=== PATIENT | male | born 1975 | race Caucasian/White ===

== ENCOUNTER 2017-08-29 19:20 | Emergency (ER) | payer BC ==
[2017-08-29] MEDS ORDERED: cefTRIAXone 1,000 MG, Lidocaine 1% 2.1 ML IM ONE ×2 (19:43)
[2017-08-29] MEDS ORDERED: Diphtheria,Pertussis(Acell),Tetanus Vaccine 0.5 ML Syringe IM ONE (19:44)
[2017-08-29] MEDS ORDERED: cefTRIAXone 1 GM in Premix Bag 1 BAG IV ONE (20:17)
[2017-08-29] MEDS ORDERED: Sodium Chloride 0.9% 1,000 ML IV ONE (20:17)
[2017-08-29] MEDS ORDERED: Ketorolac 30 MG/ML SDV IVPUSH ONE (20:18)
--- NOTE | 2017-08-29 20:22 | EDM.PDOC ---
ED HPI GENERAL MEDICAL PROBLEM - General Chief Complaint: Upper Extremity Injury/Pain Stated Complaint: LACERATION Time Seen by Provider: 08/29/17 19:40 Source of Information: Reports: Patient History Limitations: Reports: No Limitations - History of Present Illness INITIAL COMMENTS - FREE TEXT/NARRATIVE: History of present illness: [42-year-old male presenting with laceration to right thumb, complaints of traumatic injury at work which included a blow to the head. Patient describes wrapping and chain around& in the oil dukes and having it jerked away from him taking his glove and jerking his hand causing him to subsequently fall forward slamming his head into another object. Patient denies loss of consciousness nausea or vomiting. Patient is unable to fully describe the incident (vague terms that he doesn't know his try to go home and drink some whiskey and duct tape the thumb so it's unclear whether he truly lost consciousness and/or he's too intoxicated to describe the event well.] Review of systems: As per history of present illness and below otherwise all systems reviewed and negative. Past medical history: As per history of present illness and as reviewed below otherwise noncontributory. Surgical history: As per history of present illness and as reviewed below otherwise noncontributory. Social history: No reported history of drug or alcohol abuse. Family history: As per history of present illness and as reviewed below otherwise noncontributory. Physical exam: HEENT: Atraumatic, normocephalic, pupils reactive, negative for conjunctival pallor or scleral icterus, mucous membranes moist, throat clear, neck supple, nontender, trachea midline. Lungs: Clear to auscultation, breath sounds equal bilaterally, chest nontender. Heart: S1S2, regular, negative for clicks, rubs, or JVD. Abdomen: Soft, nondistended, nontender. Negative for masses or hepatosplenomegaly. Negative for costovertebral tenderness. Pelvis: Stable nontender. Genitourinary: Deferred. Rectal: Deferred. Extremities: Deep laceration to right thumb on the palmar aspect spiraling around to the top, full range of motion and sensation is intact reflecting no neurovascular compromise. Neuro: Awake, alert, oriented. Cranial nerves II through XII unremarkable. Cerebellum unremarkable. Motor and sensory unremarkable throughout. Exam nonfocal. Procedure note: Hand cleaned with thumb prepped in the usual fashion 1% lidocaine injected a proximally 3 mls until anesthesia was appreciated. Wound edges well approximated with 4. 0 Prolene, with 7 interrupted sutures placed. Bacitracin applied and tube gauze dressing Diagnostics: [Hand x-ray, chest x-ray, head CT] Therapeutics: [Dilaudid IV, normal saline, Zofran] Impression: [#1 Laceration to right thumb(approx 5.5 cm) #2 multiple contusions of head, chest and forearms without evidence of fracture] Plan: [All up with Dr. Dickens next week for further evaluation of hand] Definitive disposition and diagnosis as appropriate pending reevaluation and review of above. head/rib/hand Pain Score (Numeric/FACES): 8 - Related Data Allergies Allergy/AdvReac Type Severity Reaction Status Date / Time amitriptyline Allergy Rash Verified 08/29/17 19:22 carbamazepine [From Tegretol] Allergy Rash Verified 08/29/17 19:22 divalproex sodium Allergy Rash Verified 08/29/17 19:22 [From Depakote] Penicillins Allergy Rash Verified 08/29/17 19:22 Home Meds: Home Meds Albuterol [Ventolin HFA] 1 puff INH Q4HR PRN 06/22/17 [History] DULoxetine [Cymbalta] 60 mg PO DAILY 06/22/17 [History] Gabapentin [Neurontin] 400 mg PO TID 06/22/17 [History] LORazepam [Ativan] 0.5 mg PO Q6HR PRN 06/22/17 [History] Omeprazole 20 mg PO DAILY #14 cap.cr 06/22/17 [Rx] Acetaminophen/HYDROcodone [[place] 325-5 MG] 1 tab PO Q6H #20 tablet 07/31/17 [Rx] DULoxetine [Cymbalta] 30 mg PO DAILY 07/31/17 [History] Doxycycline Monohydrate 100 mg PO Q12H 07/31/17 [History] Meperidine HCl [Meperidine] 50 mg PO Q6H PRN 07/31/17 [History] cloNIDine [Catapres] 0.1 mg PO DAILY 07/31/17 [History] hydrOXYzine Pamoate [Hydroxyzine Pamoate] 150 mg PO BEDTIME 07/31/17 [History] lamoTRIgine [Lamotrigine] 75 mg PO BID 07/31/17 [History] Past Medical History HEENT History: Reports: None Cardiovascular History: Reports: Other (See Below) Other Cardiovascular History: "bruised heart" Respiratory History: Reports: Asthma, Other (See Below) Other Respiratory History: multiple rib fractures Musculoskeletal History: Reports: Other (See Below) Other Musculoskeletal History: rib fractures Psychiatric History: Reports: ADHD, Anxiety, Depression, PTSD - Infectious Disease History Infectious Disease History: Reports: Chicken Pox, Measles - Past Surgical History GI Surgical History: Reports: Appendectomy Other Musculoskeletal Surgeries/Procedures:: patient states he has broken every bone in his body at one time Social & Family History - Family History Family Medical History: Noncontributory - Tobacco Use Smoking Status *Q: Current Every Day Smoker Years of Tobacco use: 30 Packs/Tins Daily: 1 Second Hand Smoke Exposure: No - Caffeine Use Caffeine Use: Reports: Coffee - Recreational Drug Use Recreational Drug Use: No Review of Systems - Review of Systems Review Of Systems: See Below (See history of present illness) ED EXAM, GENERAL - Physical Exam Exam: See Below (History of present illness) Course - Vital Signs Last Recorded V/S: Last Vital Signs Temp 35.8 C 08/29/17 19:44 Pulse 82 08/29/17 22:51 Resp 18 08/29/17 22:51 BP 136/80 08/29/17 22:51 Pulse Ox 95 08/29/17 22:51 - Orders/Labs/Meds Orders: Active Orders 24 hr Category Date Time Status Vaccines to be Administered [RC] PER UNIT ROUTINE Care 08/29/17 19:44 Active Chest 2V [CR] Stat Exams 08/29/17 20:35 Taken Hand Comp Min 3V Rt [CR] Stat Exams 08/29/17 19:42 Taken Head wo Cont [CT] Stat Exams 08/29/17 19:43 Taken Labs: Laboratory Tests 08/29/17 08/29/17 Range/Units 20:26 20:26 WBC 15.45 H (4.0-11.0) K/uL RBC 4.81 (4.50-5.90) M/uL Hgb 14.3 (13.0-17.0) g/dL Hct 41.7 (38.0-50.0) % MCV 86.7 (80.0-98.0) fL MCH 29.7 (27.0-32.0) pg MCHC 34.3 (31.0-37.0) g/dL RDW Std Deviation 43.8 (28.0-62.0) fl RDW Coeff of Amarjit 14 (11.0-15.0) % Plt Count 427 H (150-400) K/uL MPV 8.80 (7.40-12.00) fL Neut % (Auto) 83.1 H (48.0-80.0) % Lymph % (Auto) 7.5 L (16.0-40.0) % Atlantic % (Auto) 8.1 (0.0-15.0) % Eos % (Auto) 1.1 (0.0-7.0) % Baso % (Auto) 0.2 (0.0-1.5) % Neut # (Auto) 12.8 H (1.4-5.7) K/uL Lymph # (Auto) 1.2 (0.6-2.4) K/uL Atlantic # (Auto) 1.3 H (0.0-0.8) K/uL Eos # (Auto) 0.2 (0.0-0.7) K/uL Baso # (Auto) 0.0 (0.0-0.1) K/uL Nucleated RBC % 0.0 /100WBC Nucleated RBCs # 0 K/uL Sodium 138 (136-146) mmol/L Potassium 3.5 (3.5-5.1) mmol/L Chloride 99 (98-110) mmol/L Carbon Dioxide 19 L (21-31) mmol/L BUN 23 (6.0-23.0) mg/dL Creatinine 1.5 (0.6-1.5) mg/dL Est Cr Clr Drug Dosing 55.81 mL/min Estimated GFR (MDRD) 51.3 ml/min Glucose 99 (60-110) mg/dL Calcium 9.7 (8.8-10.8) mg/dL Total Bilirubin 0.6 (0.1-1.5) mg/dL AST 39 (5-40) IU/L ALT 32 (8-54) IU/L Alkaline Phosphatase 85 (40-150) Total Protein 8.0 (6.0-8.0) g/dL Albumin 4.4 (3.5-5.0) g/dL Globulin 3.6 H (2.0-3.5) g/dL Albumin/Globulin Ratio 1.2 L (1.3-2.8) Ethyl Alcohol < 10.0 mg/dL Meds: Medications Discontinued Medications Generic Name Dose Route Start Last Admin Trade Name Cindy PRN Reason Stop Dose Admin Bacitracin 1 dose 08/29/17 23:07 Bacitracin Oint 1 Gm TOP 08/29/17 23:08 ONETIME ONE Ceftriaxone Sodium 1,000 mg/ 0 mg 08/29/17 19:43 Lidocaine HCl 2.1 ml IM 08/29/17 19:44 ONETIME ONE Diphtheria/Tetanus/Acell Pertussis 0.5 ml 08/29/17 19:44 08/29/17 20:43 Adacel IM 08/29/17 19:45 Not Given .ONCE ONE Hydromorphone HCl 2 mg 08/29/17 21:09 08/29/17 21:30 Dilaudid IVPUSH 08/29/17 21:10 2 mg ONETIME ONE Administration Ceftriaxone Sodium/Dextrose 1 50 mls @ 100 mls/hr 08/29/17 20:17 08/29/17 20: 38 gm/ Premix IV 08/29/17 20:46 100 mls/hr ONETIME ONE Administration Sodium Chloride 1,000 mls @ 999 mls/hr 08/29/17 20:17 08/29/17 20:38 Normal Saline IV 08/29/17 21:17 999 mls/hr STAT ONE Administration Ketorolac Tromethamine 30 mg 08/29/17 20:18 08/29/17 20:37 Toradol IVPUSH 08/29/17 20:19 30 mg ONETIME ONE Administration Lidocaine HCl 15 ml 08/29/17 22:42 Xylocaine 2% Viscous .ROUTE 08/29/17 22:43 .STK-MED ONE Lidocaine HCl Confirm 08/29/17 22:47 Xylocaine-Mpf 1% Administered 08/29/17 22:48 Dose 5 ml .ROUTE .STK-MED ONE Ondansetron HCl 4 mg 08/29/17 21:09 08/29/17 21:30 Zofran IVPUSH 08/29/17 21:10 4 mg ONETIME ONE Administration Departure - Departure Time of Disposition: 23:15 Disposition: Home, Self-Care 01 Condition: Good Clinical Impression: Laceration of right thumb - Discharge Information Forms: ED Department Discharge Additional Instructions: The following information is given to patients seen in the emergency department who are being discharged to home. This information is to outline your options for follow-up care. We provide all patients seen in our emergency department with a follow-up referral. The need for follow-up, as well as the timing and circumstances, are variable depending upon the specifics of your emergency department visit. If you don't have a primary care physician on staff, we will provide you with a referral. We always advise you to contact your personal physician following an emergency department visit to inform them of the circumstance of the visit and for follow-up with them and/or the need for any referrals to a consulting specialist. The emergency department will also refer you to a specialist when appropriate. This referral assures that you have the opportunity for follow-up care with a specialist. All of these measure are taken in an effort to provide you with optimal care, which includes your follow-up. Under all circumstances we always encourage you to contact your private physician who remains a resource for coordinating your care. When calling for follow-up care, please make the office aware that this follow-up is from your recent emergency room visit. If for any reason you are refused follow-up, please contact the [facility] Emergency Department at and asked to speak to the emergency department charge nurse. Take medication as directed Take [id number] pain medicine such as ibuprofen 800 mg 3 times a day Follow-up with the plastic and hand surgeon who is local who can facilitate further care of your hand Follow-up your primary care in 3-5 days Return to ED as needed as discussed [facility] - Pl[facility] Surgery Professional Building [address] [place] [address], [address] [place] [address] - My Orders Last 24 Hours: My Active Orders 08/29/17 19:42 Hand Comp Min 3V Rt [CR] Stat 08/29/17 19:43 Head wo Cont [CT] Stat 08/29/17 19:44 Vaccines to be Administered [RC] PER UNIT ROUTINE 08/29/17 20:35 Chest 2V [CR] Stat - Assessment/Plan Last 24 Hours: My Active Orders 08/29/17 19:42 Hand Comp Min 3V Rt [CR] Stat 08/29/17 19:43 Head wo Cont [CT] Stat 08/29/17 19:44 Vaccines to be Administered [RC] PER UNIT ROUTINE 08/29/17 20:35 Chest 2V [CR] Stat
[2017-08-29 20:51] LABS: CHLORIDE,CL 99 mmol/L (98-110); SODIUM,NA 138 mmol/L (136-146)
[2017-08-29] MEDS ORDERED: Ondansetron 4 MG/2 ML SDV IVPUSH ONE (21:09)
[2017-08-29] MEDS ORDERED: HYDROmorphone 2 MG/ML Syringe IVPUSH ONE (21:09)
[2017-08-29] MEDS ORDERED: Lidocaine 2% Viscous Solution 15 ML Cup ONE (22:42)
[2017-08-29] MEDS ORDERED: Bacitracin Oint 1 GM U/D Packet TOP ONE (23:07)
--- NOTE | 2017-09-01 18:43 | CT ---
EXAM DATE: 08/29/17 PATIENT'S AGE: 42 Patient: SHELLEY VARGAS Facility: [place], [place] Site . Site : 1975 Study: CT Head [id number] 8:21:26 PM Ordering Physician: Doctor Tena Final Report: INDICATION: Injury. Question loss of consciousness. Technique: CT head without IV contrast. Findings: Small amount of fluid, mucous and mucosal thickening right maxillary sinus. No intracranial hemorrhage, edema, or mass effect. Minimal cerebral atrophy. Remainder negative. Impression: 1. No acute intracranial disease. 2. Mild inflammatory sinus disease. Please note that all CT scans at this facility use dose modulation, iterative reconstruction, and/or weight-based dosing when appropriate to reduce radiation dose to as low as reasonably achievable. Dictated by Pilo Butts MD @ Aug 29 2017 8:41PM (Electronic Signature) Report Signed by Proxy. MTDD
--- NOTE | 2017-09-01 18:44 | CR ---
EXAM DATE: 08/29/17 PATIENT'S AGE: 42 Patient: SHELLEY VARGAS Facility: [place], [place] Site . Site : 1975 Study: XRay Extremity Right [id number]/30/2017 8:21:56 PM Ordering Physician: Doctor Tena Final Report: INDICATION: Injury at work. Technique: Three views hand and wrist. Findings: No acute fracture or dislocation in right hand. Mild ulna minus deformity. Mild soft tissue swelling right 2nd and 3rd digits. Remainder negative. Dictated by Pilo Butts MD @ Aug 29 2017 8:46PM (Electronic Signature) Report Signed by Proxy. BRENT
--- NOTE | 2017-09-01 18:45 | CR ---
EXAM DATE: 08/29/17 PATIENT'S AGE: 42 Patient: SHELLEY VARGAS Facility: [place], [place] Site . Site : 1975 Study: XRay Chest [id number]/30/2017 10:19:29 PM Ordering Physician: Doctor Tena Final Report: INDICATION: Chest pain from earlier injury. TECHNIQUE: Chest 2 views. COMPARISON: None FINDINGS: Cardiovascular and mediastinum: Heart size is normal. Pulmonary vasculature is normal. Mediastinum is within normal limits. Lungs and pleural spaces: Lungs are clear. No pleural effusion. No pneumothorax. Bones and soft tissues: No acute findings. There are surgical clips at the GE junction. IMPRESSION: No acute abnormality. Dictated by Ervin Polanco MD @ 08/29/2017 10:56:03 PM Dictated by: Ervin Polanco MD @ 08/29/2017 22:56:07 (Electronic Signature) Report Signed by Proxy. BRENT
== END 2017-08-30 00:01 | disposition home or self-care (01) ==
LOC: MW.ED 19:20
DX: S61.011A Laceration without foreign body of right thumb without damage to nail, initial encounter (principal); S00.93XA Contusion of unspecified part of head, initial encounter; S20.219A Contusion of unspecified front wall of thorax, initial encounter; S50.12XA Contusion of left forearm, initial encounter; S50.11XA Contusion of right forearm, initial encounter; F17.210 Nicotine dependence, cigarettes, uncomplicated; Z88.8 Allergy status to other drugs, medicaments and biological substances; Z88.0 Allergy status to penicillin; Z79.899 Other long term (current) drug therapy; W01.198A Fall on same level from slipping, tripping and stumbling with subsequent striking against other object, initial encounter
CPT/HCPCS: 12002; 70450; 71020; 73130; 80053; 85025; 96361; 96374; 96375; 99284; G0480; J0696; J1170; J1885; J2405; J7040

== ENCOUNTER 2023-07-25 20:22 | Emergency (ER) | payer SELFPAY | END 2023-07-25 20:24 | disposition left against medical advice (07) | LOC: MW.ED 20:22 | DX: Z53.21 Procedure and treatment not carried out due to patient leaving prior to being seen by health care provider (principal) ==